=== PATIENT | female | born 1965 | race Caucasian/White ===

== ENCOUNTER → 2016-12-01 | Outpatient (CLI) | payer OTHER ==
[~2016-12-01] MED LIST: DOXY100T41 PO; HYDR-3754 PO
--- NOTE | 2016-12-01 12:18 | Diagnostic Imaging Report ---
PROCEDURE: MRI lumbar spine. TECHNIQUE: Multiplanar, multisequence MRI of the lumbar spine was performed without contrast. INDICATION: Chronic lower back pain with bilateral lower extremity hip and leg radiculopathy getting worse over the last year. COMPARISON STUDY: MRI of the lumbar spine dated 06/01/2011. TECHNIQUE: Standard noncontrast MRI of the lumbar spine was obtained. FINDINGS: Examination demonstrates the liver to be prominent in size spanning 19.3 cm. Levoscoliosis is again identified centered at the L4 level. No fractures are identified. There is minimal retrolisthesis of L4 on L5. The L1-L2 level appears normal. There is a normal appearance of the conus medullaris. The L2-L3 level demonstrates interval mild disc space narrowing and mild disc bulge. No stenosis is present. The L3-L4 level demonstrates stable disc space narrowing with increasing disc bulge. Mild facet arthropathy is present. This has minimally worsened. Findings result in moderate narrowing of the neural foramina bilaterally which has significantly increased. L4-L5 level demonstrates stable disc space narrowing with an increase of the disc bulge. Moderate facet arthropathy right greater than left is also slightly increased. There is [id number] foraminal stenosis right greater than left which has increased. The L5-S1 level demonstrates disc space narrowing with left facet arthropathy. Disc osteophyte complex present. Moderate bilateral foraminal stenosis, left greater than right has slightly worsened. IMPRESSION: 1. Multilevel spondylosis is present as above. There has been worsening of the foraminal stenosis. 2. The liver appears of prominent size. Dictated by: Dictated on workstation # [id number]
== END ==
LOC: RAD 09:40
PROVIDERS: ATTEND Family Medicine
DX: M54.5 Low back pain (principal)
CPT/HCPCS: 72148